=== PATIENT | male | born 1960 | race Caucasian/White ===

== ENCOUNTER 2020-10-23 04:25 | Emergency (ER) | payer OTHER ==
[~2020-10-23 04:25] MED LIST: ATARAX25 MG PO; BRILINTA90 MG PO; COZAAR100 MG PO; GLUCOPHAGE850 MG PO; GLUCOTROL10 MG PO; HUMULIN 70100 UNIT/2 SC; HUMULIN R100 UNIT/2 SL; INSULIN SYRING1 EA11 SC; K-DUR20 MEQ PO; LASIX40 MG PO; LIPITOR40 MG PO; RHEUMATREX2.5 MG PO; ZOLOFT100 MG PO; ZOLOFT50 MG PO
[2020-10-23 05:00] LABS: BASOPHIL 0.4 % (0-2); EOSINOPHIL 0.3 % (0-5); HCT 42.3 % (42.0-52.0); HGB 14.7 g/dl (13.2-18.0); MCH 30.1 pg (25.0-31.0); MCHC 34.8 g/dL (32.0-36.0); MCV 86.5 fL (78.0-100.0); MONOCYTE 3.7 % (0-12); MPV 9.4 fL (6.0-9.5); NEUTROPHIL 84.4 % (41-80); NRBC 0; PLT 307 K/uL (150-400); RBC 4.89 M/uL (4.70-6.00); RDW 12.5 % (11.5-14.0); WBC 9.5 K/uL (4.0-10.5)
[2020-10-23 05:33] LABS: ALBUMIN 3.8 g/dL (3.4-5.0); ALKALINE PHOSHATASE 73 U/L (46-116); ALT 12 U/L (16-63); AST 13 U/L (15-37); BILIRUBIN - TOTAL 0.9 mg/dL (0.2-1.0); BUN 28 mg/dL (7-18); BUN/CREAT RATIO (CALC) 34.6 RATIO; CHLORIDE 107 mmol/L (98-107); CO2 (BICARBONATE) 24 mmol/L (21-32); CREATININE 0.81 mg/dL (0.67-1.17); GLOBULIN (CALCULATION) 3.4 g/dL; GLUCOSE 283 mg/dL (74-106); LIPASE 150 U/L (73-393); POTASSIUM 4.3 mmol/L (3.5-5.1); TOTAL PROTEIN 7.2 g/dL (6.4-8.2)
[2020-10-23 05:35] LABS: ACETAMINOPHEN (TYLENOL) < 2.0 ug/mL (10.0-30.0)
== END 2020-10-23 09:30 | disposition home or self-care (01) ==
LOC: FER 04:25
PROVIDERS: Student in an Organized Health Care Education/Training Program
DX: F15.10 Other stimulant abuse, uncomplicated (principal); I10 Essential (primary) hypertension; R00.0 Tachycardia, unspecified; Z88.0 Allergy status to penicillin; Z88.1 Allergy status to other antibiotic agents
CPT/HCPCS: 36415; 70450; 80048; 80076; 82009; 82553; 83690; 83880; 84145; 84484; 85025; 93005; G0480; J3486